=== PATIENT | male | born 1985 | race Two or more races ===

== ENCOUNTER 2019-01-03 07:48 | Day surgery (SDC) | payer OTHER, MEDICAID ==
[~2019-01-03] VITALS: Ht 172.7 cm; Wt 65.8 kg
[2019-01-03 08:45] LABS: Basophils # (auto) 0 uL; Basophils % (auto) 0.2 % (0.0-2.0); Eosinophils # (auto) 0.1 uL; Eosinophils % (auto) 0.7 % (0.0-7.0); Hematocrit 42.7 % (41.0-53.0); Hemoglobin 14.4 g/dL (13.5-17.5); Lymphocytes # (auto) 1.2 uL; Lymphocytes % (auto) 7.9 % (10.0-50.0); Mean Corpuscular Hgb Conc. 33.8 g/dL (32.0-36.0); Mean Corpuscular Volume 88.7 fL (80.0-100.0); Monocytes # (auto) 0.7 uL; Monocytes % (auto) 4.6 % (0.0-12.0); Neutrophils # (auto) 12.8 uL; Neutrophils % (auto) 86.6 % (37.0-80.0); Platelet Count (auto) 237 10^3/uL (140-450); Red Blood Cells 4.81 10^6/uL (4.5-5.90); Red Cell Distribution Width 13.1 % (11.8-14.3); White Blood Cell 14.7 10^3/uL (4.4-10.8)
[2019-01-03 08:46] LABS: Urine Bacteria NONE SEEN /hpf (None Seen); Urine Blood Negative /uL (Negative); Urine Mucus FEW (None Seen); Urine Specific Gravity 1.027 (1.001-1.035); Urine WBC 1 /hpf (0 - 3)
[2019-01-03 08:58] LABS: Potassium 3.2 mmol/L (3.5-5.1)
[2019-01-03 09:01] LABS: Albumin 4.3 g/dL (3.4-5.0); Calcium 8.9 mg/dL (8.5-10.1)
[2019-01-03 09:07] LABS: BUN/Creatinine Ratio 12.2; Bilirubin, Total 0.7 mg/dL (0.2-1.0); Total Protein 7.7 g/dL (6.4-8.2)
[2019-01-03] MEDS ORDERED: SODIUM CHLORIDE 0.9% 500 ML IVB ONE (10:08)
[2019-01-03] MEDS ORDERED: SODIUM CHLORIDE 0.9% 1,000 ML IV ONE (10:08)
[2019-01-03] MEDS ORDERED: cefTRIAXone 1GM/50ML D5W 50 ML IV ONE (11:15)
[2019-01-03] MEDS ORDERED: MORPHINE SULF INJ 2 MG/ML SYRINGE 1ML IV ONE (11:45)
[2019-01-03] MEDS ORDERED: PROMETHAZINE HCL 25 MG/ML 1ML IV ONE (11:45)
[2019-01-03 12:03] LABS: INR 0.97 (0.9-1.15); Partial Thromboplastin Time 24.3 sec (23.78-33.04); Prothrombin Time 10.4 sec (9.27-12.13)
[2019-01-03] MEDS ORDERED: POTASSIUM CHL 20MEQ/100ML 100 ML IV ONE (12:30)
[2019-01-03] MEDS ORDERED: MORPHINE SULF INJ 2 MG/ML SYRINGE 1ML IV PRN (13:45)
[2019-01-03] MEDS ORDERED: SOD CHL 0.9%/ KCL 20MEQ 1,000 ML IV SCH (13:45)
[2019-01-03] MEDS ORDERED: ONDANSETRON HCL 4 MG/2 ML VIAL IV PRN (13:45)
[2019-01-03] MEDS ORDERED: metroNIDAZOLE 500MG/100ML 100 ML IV SCH (13:45)
[2019-01-03] MEDS ORDERED: SUCCINYLCHOLINE CHLORIDE 20 MG/ML 10ML VIAL IV ONE (14:41)
[2019-01-03] MEDS ORDERED: LIDOCAINE 1% HCL (LOCAL ANESTH.) INJ 20ML MDV ONE (14:41)
[2019-01-03] MEDS ORDERED: BUPIVACAINE 0.25% INJ 50ML VIAL ONE (14:41)
[2019-01-03] MEDS ORDERED: ceFAZolin 1GM/50ML 50 ML IV ONE (14:42)
[2019-01-03] MEDS ORDERED: MEPERIDINE HCL (50 MG/ML) 1 ML VIAL ONE (14:47)
[2019-01-03] MEDS ORDERED: fentaNYL CITRATE 100 MCG/2 ML VL ONE (14:47)
[2019-01-03] MEDS ORDERED: MIDAZOLAM HCL 1MG/1ML-2 ML VIAL ONE (14:47)
[2019-01-03] MEDS ORDERED: ROCURONIUM 10MG/ML 10ML VIAL IV ONE (14:48)
[2019-01-03] MEDS ORDERED: PROPOFOL 10 MG/ML 20 ML IV ONE (14:48)
[2019-01-03] MEDS ORDERED: DexAMETHasone SOD PHOS 10MG/1ML VIAL INJ ONE (14:48)
[2019-01-03] MEDS ORDERED: KETOROLAC TROMETH 30 MG/ML 1ML VIAL ONE (15:20)
[2019-01-03] MEDS ORDERED: NEOSTIGMINE 1 MG/ML INJ (10mg/10ML VIAL) ONE (15:20)
[2019-01-03] MEDS ORDERED: GLYCOPYRROLATE 0.2 MG/ML 1ML VIAL ONE (15:20)
[2019-01-03] MEDS ORDERED: ONDANSETRON HCL 4 MG/2 ML VIAL IV ONE (16:15)
[2019-01-03] MEDS ORDERED: hydrALAZINE HCL 20 MG/ML VL IV PRN (16:15)
[2019-01-03] MEDS ORDERED: LABETALOL HCL 5 MG/ML 4ML SYRINGE IV PRN (16:15)
[2019-01-03] MEDS ORDERED: KETOROLAC TROMETH 30 MG/ML 1ML VIAL IV ONE (16:15)
[2019-01-03] MEDS ORDERED: MIDAZOLAM HCL 1MG/1ML-2 ML VIAL IV PRN (16:15)
[2019-01-03] MEDS ORDERED: HYDROmorphone HCL 2 MG/ML VL IV PRN (16:15)
[2019-01-03 17:40] VITALS: BP 105/84
[2019-01-03] MEDS ORDERED: MORPHINE SULFATE 4 MG/ML SYR/VIAL IV ONE (18:00)
[2019-01-04] MEDS ORDERED: LEVOFLOXACIN 750MG 150 ML IV SCH (10:00)
--- NOTE | 2019-01-05 10:20 | NUR ---
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 No call or page on this patient. Patient discharged home. Addendum: 01/05/19 at 1021 by Minerva Stone Amended: Links added.
== END 2019-01-03 17:40 | disposition home or self-care (01) ==
LOC: ER 07:52 → OVERFLOW 13:41 → UNDOADMIN 13:41 → SUR 14:18 → UNDODISIN 17:40 → SUR 17:40
PROVIDERS: ATTEND Surgery
DX: K35.33 Acute appendicitis with perforation, localized peritonitis, and gangrene, with abscess (principal); I10 Essential (primary) hypertension; Z98.890 Other specified postprocedural states
CPT/HCPCS: 36415; 44970; 71046; 74176; 80053; 81001; 83690; 83735; 85025; 85610; 85730; 86850; 86900; 86901; 88304; 93005; 96361; 96365; 96366; 96367; 96375; 99285; J0330; J0690; J0696; J1100; J1885; J2001; J2175; J2250; J2270; J2550; J2704; J3010; J3480; J3490; J7030; G0378